=== PATIENT | female | born 1965 | race Caucasian/White ===

== ENCOUNTER → 2025-01-08 12:07 | Outpatient (REF) | payer BC, SELFPAY | LOC: HWWDC 12:07 | PROVIDERS: ATTENDING PHYSICIAN Student in an Organized Health Care Education/Training Program | DX: Z12.31 Encounter for screening mammogram for malignant neoplasm of breast (principal) | CPT/HCPCS: 77063; 77067 ==

== ENCOUNTER → 2025-08-22 11:26 | Outpatient (REF) | payer BC, SELFPAY | LOC: HWRAD 11:26 | PROVIDERS: ATTENDING PHYSICIAN Student in an Organized Health Care Education/Training Program | DX: Z87.891 Personal history of nicotine dependence (principal) | CPT/HCPCS: 71271 ==